=== PATIENT | female | born 1970 | race Caucasian/White ===

== ENCOUNTER 2023-08-17 11:49 | Emergency (ER) | payer OTHER ==
[2023-08-17 12:13] VITALS: BP 104/70; PULSE 60; RESP 18; TEMP 97.9; BMI 24.3
[2023-08-17] MEDS ORDERED: IBUPROFEN 600 MG TABLET (FP) PO ONE (13:12)
[2023-08-17] MEDS: IBUPROFEN 600 MG TABLET (FP) PO ONE (13:12)
== END 2023-08-17 13:25 | disposition home or self-care (01) ==
LOC: JERFT 11:49
DX: S92.512A Displaced fracture of proximal phalanx of left lesser toe(s), initial encounter for closed fracture (principal); W22.8XXA Striking against or struck by other objects, initial encounter
CPT/HCPCS: 73630-TC-LT; 99283-25